=== PATIENT | male | born 1965 | race Caucasian/White ===

== ENCOUNTER 2018-12-09 10:45 | Emergency (ER) | payer BC ==
[~2018-12-09] VITALS: Ht 188 cm; Wt 90.7 kg
[2018-12-09 10:55] VITALS: BP 129/84
[2018-12-09] MEDS ORDERED: KETOROLAC TROMETHAMINE INJ 30 MG/ML VIAL ONE (11:04)
[2018-12-09] MEDS: KETOROLAC TROMETHAMINE INJ 60 MG/2 ML VIAL IM ONE (11:08)
[2018-12-09] MEDS ORDERED: HYDROCODONE/APAP 5/325MG 1 EACH TABLET ONE (12:18)
[2018-12-09] MEDS: HYDROCODONE/APAP 5/325MG 1 EACH TABLET PO ONE (12:20)
[2018-12-09] MEDS ORDERED: HYDROMORPHONE 1 MG/1 ML DISP.SYRIN ONE (13:34)
--- NOTE | 2018-12-09 13:34 | NUR ---
PER DR. THORNTON'S ORDER, DILAUDID 0.5MG IM; DILAUDID 1MG AVAILABLE IN OMNICELL, WASTED 0.5MG WITH 2ND NURSE.
[2018-12-09] MEDS: HYDROMORPHONE 1 MG/1 ML DISP.SYRIN IM ONE (13:47)
== END 2018-12-09 14:04 | disposition home or self-care (01) ==
LOC: ER 10:47
DX: M54.5 Low back pain (principal); Z98.890 Other specified postprocedural states; Z60.2 Problems related to living alone
CPT/HCPCS: 72110; 96372 ×2; 99283; J1170; J1885